=== PATIENT | female | born 1955 | race Caucasian/White ===

== ENCOUNTER 2017-05-24 13:02 | Emergency (ER) | payer OTHER ==
--- NOTE | 2017-05-24 13:28 | EDPHY ---
H & P Stated Complaint: "I think I have a retina detached" in R eye;sxs at 9am Time Seen by Provider: 05/24/17 13:18 HPI/ROS: Chief Complaint: Right eye vision loss HPI: 7-year-old woman notice a loss of vision like a curtain coming across from her nose to the middle of her eye which she noticed since about 9 o'clock this morning. She has had increasing floaters for the last month and has noted cyst on a increased flashing in that eye for the last week. Has a history of bilateral cataract surgery in the past. Has some mild eye irritation. Denies any recent trauma. No headache. ROS: 10 point Review of Systems is negative except as noted in the HPI. PMH: Depression, cataract surgery Medications: Cymbalta Allergies: No known drug allergies Social History: No smoking, moderate alcohol, no recreational drug use Family History: non-contributory Physical Exam: Gen: Awake, Alert, No Distress HEENT: Nose: no rhinorrhea Eyes: PERRLA, EOMI, on funddoscopy there is an obvious retinal detachment in the lateral aspect of her right eye, no injection Mouth: Moist mucosa Neck: Supple Chest: Normal respirations, Heart: Perfusion Abd: Normal exam Ext: no edema, non-tender Skin: no rash Neuro: CN II-XII intact, Sensation grossly intact, Strength 5/5 in bilateral upper and lower extremities - Personal History Current Tetanus Diphtheria and Acellular Pertussis (TDAP): Yes - Medical/Surgical History Other PMH: bilateral cataracts. carpal tunnel,bunionectomy - Social History Smoking Status: Never smoked Constitutional: Initial Vital Signs Temperature (C) 36.6 C 05/24/17 13:05 Heart Rate 85 05/24/17 13:05 Respiratory Rate 18 05/24/17 13:05 Blood Pressure 139/52 H 05/24/17 13:05 O2 Sat (%) 92 05/24/17 13:05 O2 Delivery Mode Room Air Allergies/Adverse Reactions: No Known Allergies Allergy (Unverified 05/24/17 13:09) Home Medications: Medication Instructions Recorded DULoxetine [Cymbalta 30 MG (*)] 100 05/24/17 Medical Decision Making ED Course/Re-evaluation: 61-year-old woman with a retinal detachment on her right eye. Ophthalmology has been paged. Patient has been consult by Ophthalmology. Patient has a detached retina. Plan is for outpatient surgical repair. Arrangements have been made. Patient will be discharged with follow-up on Friday. - Data Points Medications Given: Discontinued Medications Proparacaine HCl (Alcaine 0.5%) 1 drops OP EDNOW ONE Stop: 05/24/17 14:04 Last Admin: 05/24/17 14:13 Dose: 1 drop Tropicamide (Mydriacyl 1%) 1 drops RTEYE ONCE ONE Stop: 05/24/17 14:03 Last Admin: 05/24/17 14:31 Dose: 1 drop Departure - Departure Disposition: [facility] Acute Clinical Impression: Retinal detachment Condition: Good Additional Instructions: Follow up with Ophthalmology on Friday for outpatient surgical management. Return emergency depart for worsening vision changes, pain, or any other concerns. Referrals: Andry Morley MD [Medical Doctor] - As per Instructions
[2017-05-24] MEDS ORDERED: TROPICAMIDE 1% 15 ML OPHT.BTL RTEYE ONE (14:02)
[2017-05-24] MEDS ORDERED: PROPARACAINE 0.5% 15 ML OPHT DROP OP ONE (14:03)
[2017-05-24 15:28] VITALS: BP 132/77; PULSE 74; RESP 16; TEMP 98.1; O2SAT 94
--- NOTE | 2017-05-24 18:15 | GCON ---
[f rep st] CONSULTATION OPHTHALMOLOGY CONSULTATION DATE OF CONSULTATION: 05/24/2017 REASON FOR CONSULTATION: Visual field cut, right eye. HISTORY OF PRESENT ILLNESS: Patient is an otherwise healthy 61-year-old female who reported a nasal visual field cut that started earlier today. She came to the emergency department for assessment. PAST OCULAR HISTORY: Prior hyperopia with cataract surgery performed in [place], [place], approximately a year and a half ago. She denies use of contacts or glasses. Her surgery appears to have been done with a multifocal IOLs, both ___ . MEDICATIONS: p.r.n. allergy medication. ALLERGIES: Patient reports no known drug allergies. SOCIAL HISTORY: Patient denies tobacco use. Social drinker. Recently moved from [place] to [place]. FAMILY HISTORY: Noncontributory. REVIEW OF SYSTEMS: Noncontributory. PHYSICAL EXAMINATION: Visual acuity without correction is 20/20 in both eyes with aforementioned nasal visual field defect in the right eye. Bedside exam reveals normal lids and lashes. Normal conjunctivae and sclerae. Clear corneas. Anterior chambers are formed, irises normal and posterior chamber intraocular lens, OU. Extraocular motility is full and intact. Intraocular pressure is soft to palpation. Dilated fundus exam: Patient has a size and contour ASSESSMENT AND PLAN: Retinal detachment: Patient has a large retinal detachment , and macula appears to be on. Retina was consulted for evaluation, and surgical repair will be scheduled. In the meantime, posturing was advised, and instructions were given to the patient to lie on her right side until surgical repair can be accomplished. /[id number]/MODL and [id number]/MODL [facility]
== END 2017-05-24 16:06 | disposition home or self-care (01) ==
DX: H33.21 Serous retinal detachment, right eye (principal)